=== PATIENT | female | born 2000 | race Caucasian/White ===

== ENCOUNTER 2021-09-02 07:51 | Inpatient (IN) ==
[~2021-09-02 07:51] MED LIST: Azithromycin 500 MG in 0.9 % Sodium Chloride 250 ML IVPB PRN; Famotidine 20 MG/2 ML VIAL IVP PRN; Lidocaine 1% 20 ML MDV INFILT PRN; Metoclopramide 10 MG/2 ML VIAL IVP PRN; Naloxone 0.4 MG/ML INJ IVP PRN; Ondansetron 4 MG/2 ML VIAL IVP PRN
[2021-09-02 08:44] LABS: Basophils % 0.1 %; Eosinophils # 0.1 K/mcL (0.0-0.6); Eosinophils % 1.3 %; Hematocrit 27.2 % (35.3-44.9); Hemoglobin 8.7 g/dL (11.5-15.4); Immature Granulocytes % 0.6 % (0-4); Lymphocytes # 2.2 K/mcL (0.6-4.6); Lymphocytes % 32.2 %; Mean Corpuscular Hemoglobin 24.9 pg (28.0-33.3); Mean Corpuscular Volume 77.7 fL (83.0-100.0); Mean Platelet Volume 11.5 fL (9.4-12.4); Monocytes # 0.5 K/mcL (0.0-1.3); Monocytes % 7.5 %; Neutrophils # 3.9 K/mcL (1.6-8.9); Platelet Count 206 K/mcL (140-400); Red Cell Distribution Width 13.8 % (11.5-14.5); Segmented Neutrophils % 58.3 %; White Blood Count 6.7 K/mcL (4.3-11.1)
[2021-09-02] MEDS ORDERED: EPHEDrine 50 MG/ML VIAL IVP PRN (08:50)
[2021-09-02] MEDS ORDERED: Epidural Premix (fent/bupiv) 110 ML EP SCH (09:00)
[2021-09-02 09:19] LABS: Influenza A PCR Negative (Negative); Influenza B PCR Negative (Negative); Resp. Syncytial Virus PCR Negative (Negative)
[2021-09-02 09:21] LABS: SARS-CoV-2 by PCR (In House) Negative (Negative)
[2021-09-02 09:51] LABS: Amphetamine Screen,Urine Negative ng/mL (Cutoff=1000); Barbiturate Screen,Urine Negative ng/mL (Cutoff=200); Benzodiazepines Screen,Urine Negative ng/mL (Cutoff=200); Cannabinoid Screen,Urine Negative ng/mL (Cutoff = 50); Cocaine Screen,Urine Negative ng/mL (Cutoff= 300); Opiate Screen,Urine Negative ng/mL (Cutoff=300); Phencyclidine Screen,Urine Negative ng/mL (Cutoff=25)
[2021-09-02] MEDS ORDERED: *HR* Nalbuphine 10 MG/ML AMPUL IV PRN (10:54)
[2021-09-02] MEDS ORDERED: Oxytocin 30 UNIT/503 ML BAG IVC SCH (14:15)
[2021-09-02] MEDS: Ringers Solution, Lactated 1,000 ML IVC SCH ×2 (14:40→14:45)
[2021-09-02] MEDS ORDERED: Bupivacaine-MPF 0.25% 10 ML VIAL ONE (15:55)
[2021-09-02] MEDS ORDERED: *HR* Ropivacaine/PF 0.5% 20 ML VIAL ONE (16:13)
[2021-09-02] MEDS ORDERED: Ropivacaine/PF 0.2% 20 ML VIAL ONE (16:13)
[2021-09-02] MEDS ORDERED: *HR* FentaNYL (PF) 100 MCG/2 ML VIAL ONE (16:13)
[2021-09-02] MEDS ORDERED: Lanolin 7 G OINT...G. TP PRN (16:54)
[2021-09-02] MEDS ORDERED: Ondansetron ODT 4 MG TAB.RAPDIS SL PRN (16:54)
[2021-09-02] MEDS ORDERED: Benzocaine/Menthol 56 GM AEROSOL SPRAY TP PRN (16:54)
[2021-09-02] MEDS: Oxytocin 30 UNIT/503 ML BAG IVC SCH (17:30)
[2021-09-02] MEDS: Acetaminophen 325 MG TABLET PO SCH (17:53)
[2021-09-02 22:19] VITALS: O2SAT 98
[2021-09-02] MEDS: Ibuprofen 600 MG TABLET PO SCH (23:01)
[2021-09-03] MEDS: Acetaminophen 325 MG TABLET PO SCH (05:30)
[2021-09-03] MEDS: Ibuprofen 600 MG TABLET PO SCH (05:30)
[2021-09-03 05:57] LABS: Basophils % 0.1 %; Eosinophils # 0.1 K/mcL (0.0-0.6); Eosinophils % 0.6 %; Hematocrit 25.7 % (35.3-44.9); Hemoglobin 7.9 g/dL (11.5-15.4); Immature Granulocytes % 0.4 % (0-4); Lymphocytes # 2.2 K/mcL (0.6-4.6); Lymphocytes % 23.6 %; Mean Corpuscular HGB Conc 30.7 g/dL (31.6-35.5); Mean Corpuscular Hemoglobin 23.8 pg (28.0-33.3); Mean Corpuscular Volume 77.4 fL (83.0-100.0); Mean Platelet Volume 11.1 fL (9.4-12.4); Monocytes # 0.6 K/mcL (0.0-1.3); Monocytes % 6.9 %; Neutrophils # 6.4 K/mcL (1.6-8.9); Platelet Count 215 K/mcL (140-400); Red Blood Count 3.32 M/mcL (3.82-4.97); Red Cell Distribution Width 13.6 % (11.5-14.5); Segmented Neutrophils % 68.4 %; White Blood Count 9.3 K/mcL (4.3-11.1)
[2021-09-03] MEDS: Ringers Solution, Lactated 1,000 ML IVC SCH (06:03)
[2021-09-03 07:11] VITALS: BP 120/73; TEMP 98.2
[2021-09-03] MEDS ORDERED: Prenatal Vit/FA 1 EACH TABLET PO SCH (09:00)
[2021-09-03 15:39] VITALS: PULSE 70
== END 2021-09-03 18:24 | disposition home or self-care (01) | DRG 560 ==
LOC: 1NENULAB → 1NENUOBS 20:16
PROVIDERS: ADMIT Advanced Practice Midwife; ATTEND Advanced Practice Midwife